=== PATIENT | female | born 1955 | race Caucasian/White ===

== ENCOUNTER → 2019-04-09 | Outpatient (CLI) | payer OTHER ==
[2019-04-09 09:22] LABS: COLLAGEN EPINEPHRINE 131 SECONDS (74-162)
== END ==
LOC: M LAB 08:13
PROVIDERS: ATTEND Ophthalmology
DX: H02.831 Dermatochalasis of right upper eyelid (principal); H02.834 Dermatochalasis of left upper eyelid; H02.423 Myogenic ptosis of bilateral eyelids

== ENCOUNTER → 2019-07-24 | Outpatient (CLI) | payer OTHER ==
[2019-07-24 09:54] VITALS: BP 124/70
--- NOTE | 2019-07-24 10:42 | REP ---
SPECIMEN RADIOGRAPHS: Specimen radiographs are performed following stereotactic biopsy of clustered microcalcifications in the medial left breast. Multiple calcifications are seen in the specimens.
--- NOTE | 2019-07-24 10:45 | REP ---
POSTBIOPSY MAMMOGRAM, LEFT BREAST. Following stereotactic biopsy of clustered microcalcifications in the medial left breast, ML and CC views are performed of the left breast. A metallic clip is seen at the site of the clustered microcalcifications. Many of the calcifications are no longer present.
--- NOTE | 2019-07-24 19:10 | REP ---
Stereotactic breast biopsy. This procedure is performed by VAL Fields, under the personal supervision of Dr. Mariscal. The risks and benefits of the procedure were explained to the patient and informed consent was obtained both verbally and written. Directly prior to the start of the procedure, a formal timeout was done in the procedure room. The cranial caudal approach was utilized on the prone stereotactic table. The calcifications in the left breast were localized using stereotactic mammographic guidance. 4 ml of buffered lidocaine was used as a local anesthetic. A 10-gauge, suction assisted Mammotome needle was inserted and 7 core biopsy samples were obtained. Specimen radiograph demonstrate the presence of microcalcifications to be within the specimen. A marker clip was placed at the biopsy site. The needle was removed and homeostasis was achieved. The patient tolerated the procedure well and there were no immediate complications. After the appropriate amount of monitored convalescence, the patient was discharged from the department. Impression: Technically successful left stereotactic breast biopsy Reviewed by VAL Sweeney 07/24/2019 11:22 A Electronically Signed by Angelito Mariscal MD 07/24/2019 07:01 P
== END ==
LOC: M WHCPRO 08:28
PROVIDERS: ATTEND Surgery
DX: D05.12 Intraductal carcinoma in situ of left breast (principal); Z88.0 Allergy status to penicillin; Z88.2 Allergy status to sulfonamides

== ENCOUNTER → 2019-08-15 | Outpatient (CLI) | payer OTHER ==
[~2019-08-15] MED LIST: PROHANCE 279.3MG/ML 15ML VIAL As Ordered ONE; PROHANCE 279.3MG/ML 5ML VIAL As Ordered ONE
--- NOTE | 2019-08-15 12:53 | REP ---
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 TECHNIQUE: Multiple sequences obtained in the axial, coronal and sagittal planes prior to and following the intravenous administration of 16 mL ProHance. Images are evaluated in the [employer] software including dynamic post-IV gadolinium axial T1 fat saturation images, subtraction images, color overlay images, CAD images, and MIP reconstruction images. There is moderate fibroglandular tissue bilaterally in a fairly symmetrical pattern. Multiple small cysts are scattered throughout both breasts. These are subcentimeter in diameter. There is a focal area of hemorrhagic fluid with an associated biopsy clip in the medial left breast at the site of the recent stereotactic biopsy of clustered microcalcifications. A small hematoma measures 9 mm. This is at 9-o'clock position at the level of the nipple. No axillary adenopathy is seen. Directly posterior to the biopsy site, there is a 5 mm nodular focus of enhancement with a small linear extension anteriorly. This appears somewhat suspicious. In addition, there appear to be some subtle stippled foci of enhancement in the surrounding breast parenchyma, and early ductal carcinoma in situ at these locations cannot be excluded. The area involved in the medial left breast is approximately 4.1 x 7.2 x 3.1 cm. Area extends from just above the biopsy site to about 4 cm below the biopsy site. No other abnormal enhancement is seen in either breast, with very mid scattered background parenchymal enhancement. Incidental note is made of multiple gallstones filling the gallbladder. There are two adjacent nonenhancing cysts in the left lobe of the liver. IMPRESSION: BI-RADS category 6, known left breast cancer. The biopsy site is noted in the medial left breast. Directly posterior to the biopsy site, there is a 5 mm nodular enhancing focus which appears suspicious. This may represent an adjacent focus of cancer. In addition, there are some subtle scattered stippled foci of enhancement in the surrounding parenchyma, more so inferior to the biopsy site, which could represent subtle early foci of ductal carcinoma in situ. The area involved measures 4.1 cm craniocaudal x 7.2 cm AP x 3.1 cm transverse. Electronically Signed by Angelito Mariscal MD 08/15/2019 03:19 P
== END ==
LOC: M RAD 08:23
PROVIDERS: ATTEND Surgery
DX: C50.919 Malignant neoplasm of unspecified site of unspecified female breast (principal); N60.11 Diffuse cystic mastopathy of right breast; N60.12 Diffuse cystic mastopathy of left breast; K80.20 Calculus of gallbladder without cholecystitis without obstruction; K76.89 Other specified diseases of liver
CPT/HCPCS: A9576; C8908

== ENCOUNTER 2019-09-26 08:15 | Day surgery (SDC) | payer OTHER ==
[~2019-09-26] VITALS: Ht 160 cm; Wt 80.7 kg
[~2019-09-26 08:15] MED LIST changes: +ACET-907 PO; +CETI5SOL3 PO; +LEVO75TA4 PO; +PROAAER10 INH; -PROHANCE 279.3MG/ML 15ML VIAL As Ordered ONE; -PROHANCE 279.3MG/ML 5ML VIAL As Ordered ONE; +RAMI1CAP26 PO; +SIMV40TA20 PO; +VITA50005 PO
[2019-09-26] MEDS ORDERED: LIDOCAINE 5% (LIDODERM) PATCH As Ordered ONE (08:32)
[2019-09-26] MEDS ORDERED: propofoL 200 MG/20 ML VIAL ONE (09:03)
[2019-09-26] MEDS ORDERED: MIDAZOLAM INJ 2MG/2ML VIAL (J2250 PER 1MG) ONE (09:03)
[2019-09-26] MEDS ORDERED: LIDOCAINE 2% 100MG/5ML SDV (FOR ANES.) ONE (09:03)
[2019-09-26] MEDS ORDERED: ROCURONIUM BROMIDE 50 MG/5 ML VIAL ONE (09:03)
[2019-09-26] MEDS ORDERED: fentaNYL 250 MCG/5 ML INJECTION (J3010) ONE (09:03)
[2019-09-26] MEDS ORDERED: SCOPOLAMINE 1MG TRANSDERMAL PATCH ONE (10:53)
[2019-09-26] MEDS ORDERED: PHENYLephrine HCL 500 MCG/5 ML (100MCG/ML) SYRINGE (J2370) ONE (11:49)
[2019-09-26] MEDS ORDERED: ONDANSETRON 4MG/2ML VIAL ONE (12:24)
[2019-09-26] MEDS ORDERED: METOCLOPRAMIDE INJ 10MG/2ML VIAL (J2765 PER 1) ONE (12:24)
[2019-09-26] MEDS ORDERED: KETOROLAC 60MG 2ML VIAL ONE (12:24)
[2019-09-26] MEDS ORDERED: SUGAMMADEX SODIUM 500 MG/5 ML VIAL (BRIDION) ONE (12:24)
[2019-09-26] MEDS ORDERED: ePHEDrine SULFATE 25 MG/5 ML(5MG/ML) SYRINGE ONE (12:51)
[2019-09-26] MEDS ORDERED: oxyCODONE 5MG TAB ONE (15:40)
[2019-11-05] MEDS ORDERED: REFR0.5D8 OP (09:01)
[2019-11-05] MEDS ORDERED: CALC1TAB63 PO (09:13)
[2019-11-05] MEDS ORDERED: ANAS1TAB2 PO (09:14)
--- NOTE | 2019-11-14 09:16 | REP ---
LEFT BREAST LYMPHOSCINTIGRAPHY: The procedure was performed under the direct supervision of Dr. Minaya. The images were reviewed with Dr. Minaya. The risks and benefits of the procedure were explained to the patient and informed consent was obtained. PROCEDURE: Using topical anesthetic and sterile technique, 1.041 mCi of technetium-99 filtered sulfur colloid was injected subdermally in 8 fractionated periareolar injections. Images obtained one hour after injection show reema uptake in the axillary region on the left. IMPRESSION: Left breast lymphoscintigraphy. There is reema uptake in the left axillary region. MTDD
--- NOTE | 2019-11-27 09:29 | RO ---
DATE OF OPERATION: 09/26/2019 PREOPERATIVE DIAGNOSIS: Left breast cancer. POSTOPERATIVE DIAGNOSIS: Left breast cancer. PROCEDURES PERFORMED: * Ultrasound-guided placement of localizing wire to localize her prior breast biopsy site. * Left breast sentinel lymph node biopsy. * Needle localized excision of left breast ductal carcinoma in situ and invasive ductal carcinoma. SURGEON: Hamlet Wilks M.D. ANESTHESIA: General. INDICATIONS FOR PROCEDURE: The patient is a 64-year-old woman who on recent mammogram was found to have a new cluster of calcifications in the medial aspect of the left breast. She underwent a stereotactic biopsy of the left breast on the 23 of July with the biopsy revealing ductal carcinoma in situ with a very small (2 mm) focus of invasive carcinoma. She is now for a needle localized excisional biopsy of her previous biopsy site with a sentinel lymph node biopsy. DESCRIPTION OF PROCEDURE: The patient was brought to the operating room and placed on the table in a supine position. She was placed under general endotracheal anesthesia. She had been sent to the x-ray department for lymphoscintigraphy prior to coming to the operating room. Her imaging did indicate the presence of an area of uptake of her radioactive tracer in the left axilla. With examination of the axilla, I did identify an area of uptake in the anterior aspect of the axilla on the left just posterior to the anterior axillary fold. The electronic lab technician assisted in identifying the biopsy marker, which had been placed at the time of her stereotactic biopsy. I placed a localizing hook wire at the site of the clip under ultrasound guidance. This was done after alcohol prep. The patients left breast, chest wall, and axilla were then prepped and draped in a sterile fashion. Initially, I proceeded with the sentinel lymph node biopsy. Inspection of the breast and axilla showed that there was significant tracer activity noted at a focal spot in the anterior aspect of the left axilla. An approximately 3 cm transverse incision was made directly over this site. The incision was deepened into the subcutaneous tissue using the cautery and the axillary fascia was then opened. Dissection was then carried out using a combination of sharp and cautery dissection. Some avascular tissues could be spread bluntly. The dissection was guided using intermittent examination with the Neoprobe to identify the site of gamma activity. The incision was deepened into the axilla and in an area close to the chest wall. A single lymph node was identified. This was removed with some surrounding fibrofatty tissue. There was a single node about 1 to 1.5 cm in diameter that was identified. A 10-second gamma count was approximately 27,000. This was sent for a frozen section as the left axillary sentinel lymph node. Re-inspection of the axilla revealed no other areas of significant radiotracer activity. Background count was approximately 225 in 10 seconds. The wound was irrigated and inspected and hemostasis was ensured with cautery or Hemoclips as necessary. I began to close the wound with some Chromic sutures in the subcutaneous tissues. The skin edges were approximated with a running subcuticular 4-0 Vicryl. I was contacted by the pathologist by phone to report that the frozen section of the sentinel node was negative for metastatic cancer. I then proceeded with the wide excision of the cancer. The site of the localizing wire was noted in the medial aspect of the left breast. An elliptical skin incision was outlined approximately 5-6 cm in length x perhaps 2 cm in width. The skin was incised with a scalpel and hemostasis was ensured with a cautery. The skin edges were then elevated and by primarily palpation, the biopsy was dissected circumferentially. I proceeded to take a fairly wide excision of the area of her previously noted calcifications as marked by the hook wire. The incision was deepened through the breast tissue at the edge of the areola in the more central aspect of the breast. The dissection was deepened to a point quite deep to the tip of the localizing wire. The pectoral fascia was not identified directly, but the dissection had proceeded close to this. The specimen was removed and measured approximately 7 cm in length x 7 cm in width x 4 cm in thickness. This was marked with the [employer] MarginMarker system. After fixing the marking paint, two images were obtained in the [facility], which showed the marker clip fairly centrally within the specimen with the guidewire in place. The specimen was sent for permanent pathology. The wound was inspected for hemostasis. Several Chromic sutures were placed. The cautery was used for additional hemostasis. I then mobilized the breast tissue superiorly and inferiorly to bring this together. There was some excess skin along the edges of the wound and some of this was trimmed sharply. It was necessary to tailor the skin at the edge of the areola to avoid a dog ear in this position. After achieving adequate hemostasis, the deep portions of the breast tissue were approximated with some buried sutures of 2-0 Chromic. The more superficial tissues were approximated with some 3-0 Vicryl. The skin edges were approximated with multiple buried 3-0 Vicryl sutures and the skin was then closed with a running subcuticular 4-0 Vicryl. Steri-Strips were applied to the breast and axillary wounds. A bulky bandage of gauze was applied. The patient tolerated the procedure well without apparent complication. She was awakened in the operating room, extubated, and moved to the recovery room in stable condition. AURA
--- NOTE | 2019-12-08 09:49 | REP ---
DATE: 09/26/2019 TIME: 1:59 p.m. SPECIMEN RADIOGRAPHY: Left breast. HISTORY: Excisional biopsy needle localization. COMPARISON: Mammography July 24, 2019. FINDINGS: A series of 2 specimen radiographs demonstrated breast specimen containing a localizer wire, a previously placed needle biopsy marker clip and several groups of microcalcifications. MTDD
--- NOTE | 2019-12-08 09:50 | REP ---
TARGETED LEFT BREAST SONOGRAPHY HISTORY: Sonographic guidance. FINDINGS: Sonographic guidance is provided to Dr. Wilks who performed ultrasound-guided wire localization procedure of HydroMARK clip left breast. AURA
== END 2019-09-26 17:20 | disposition home or self-care (01) ==
LOC: M SDC 08:15
PROVIDERS: ATTEND Surgery
DX: D05.12 Intraductal carcinoma in situ of left breast (principal); I10 Essential (primary) hypertension; E78.5 Hyperlipidemia, unspecified; E03.9 Hypothyroidism, unspecified; G43.909 Migraine, unspecified, not intractable, without status migrainosus; J45.909 Unspecified asthma, uncomplicated; Z88.0 Allergy status to penicillin; Z88.2 Allergy status to sulfonamides; Z79.899 Other long term (current) drug therapy; Z79.51 Long term (current) use of inhaled steroids
CPT/HCPCS: 19125; 38525; 78195; 88305; 88307; A9541; J1885; J2250; J2370; J2405; J2765; J3010

== ENCOUNTER → 2019-10-12 | Outpatient (CLI) | payer OTHER ==
[~2019-10-12] MED LIST changes: +ANAS1TAB2 PO; +CALC1TAB63 PO; +REFR0.5D8 OP
== END ==
LOC: M LABSMTC 09:26
PROVIDERS: ATTEND Anesthesiology
DX: Z01.812 Encounter for preprocedural laboratory examination (principal); Z11.59 Encounter for screening for other viral diseases

== ENCOUNTER 2019-10-17 06:00 | Day surgery (SDC) | payer OTHER ==
[~2019-10-17] VITALS: Ht 160 cm; Wt 80.6 kg
[~2019-10-17 06:00] MED LIST changes: -ANAS1TAB2 PO; -CALC1TAB63 PO; -REFR0.5D8 OP
[2019-10-17] MEDS ORDERED: BUPIVACAINE HCL 0.25% 30ML VIAL As Ordered ONE (07:13)
[2019-10-17] MEDS ORDERED: LIDOCAINE 1% SDV 30ML VIAL As Ordered ONE (07:13)
[2019-10-17] MEDS ORDERED: LIDOCAINE 2% 100MG/5ML SDV (FOR ANES.) As Ordered ONE (07:15)
[2019-10-17] MEDS ORDERED: dexameTHASONE 4 MG/ML 1ML VIAL (J1100 PER 1MG) As Ordered ONE (07:15)
[2019-10-17] MEDS ORDERED: ONDANSETRON 4MG/2ML VIAL As Ordered ONE (07:15)
[2019-10-17] MEDS ORDERED: ROCURONIUM BROMIDE 50 MG/5 ML VIAL As Ordered ONE (07:15)
[2019-10-17] MEDS ORDERED: propofoL 200 MG/20 ML VIAL As Ordered ONE (07:15)
[2019-10-17] MEDS ORDERED: MIDAZOLAM INJ 2MG/2ML VIAL (J2250 PER 1MG) As Ordered ONE (07:17)
[2019-10-17] MEDS ORDERED: fentaNYL 250 MCG/5 ML INJECTION (J3010) As Ordered ONE (07:17)
[2019-10-17] MEDS ORDERED: METOCLOPRAMIDE INJ 10MG/2ML VIAL (J2765 PER 1) As Ordered ONE (07:50)
[2019-10-17] MEDS ORDERED: ePHEDrine SULFATE 25 MG/5 ML(5MG/ML) SYRINGE As Ordered ONE (07:56)
[2019-10-17] MEDS ORDERED: ACETAMINOPHEN 1000MG 100ML IV BTL (OFIRMEV) (J0131 PER 10MG) As Ordered ONE (08:00)
[2019-10-17] MEDS ORDERED: LACRILUBE (AKWA TEARS) OPHTH OINT 3.5 GM As Ordered ONE (08:00)
[2019-10-17] MEDS ORDERED: HYDROmorphone HCL 2 MG/ML 1ML VIAL (J1170) As Ordered ONE (08:24)
[2019-10-17] MEDS ORDERED: KETOROLAC 60MG 2ML VIAL As Ordered ONE (08:44)
[2019-10-17] MEDS ORDERED: SUGAMMADEX SODIUM 500 MG/5 ML VIAL (BRIDION) As Ordered ONE (08:44)
[2019-10-17] MEDS ORDERED: BUPIVACAINE LIPOSOME/PF 1.3% 20ML VIAL (13.3MG/ML)(EXPAREL)(C9290 PER1MG) As Ordered ONE (09:30)
[2019-10-17] MEDS ORDERED: PERCOCET 5MG/325MG TAB As Ordered ONE (10:58)
[2019-10-17] MEDS ORDERED: LR 1,000 ML IV SCH (11:00)
[2019-10-17] MEDS ORDERED: ONDANSETRON 4MG/2ML VIAL IV PRN (11:00)
[2019-10-17] MEDS ORDERED: fentaNYL 100 MCG/2 ML INJECTION (J3010) IV PRN (11:00)
[2019-10-17] MEDS ORDERED: METOCLOPRAMIDE INJ 10MG/2ML VIAL (J2765 PER 1) IV PRN (11:00)
[2019-10-17] MEDS ORDERED: PERCOCET 5MG/325MG TAB PO PRN ×2 (11:00→12:00)
[2019-10-17 12:00] VITALS: BP 120/69
[2019-10-17] MEDS ORDERED: ACETAMINOPHEN TAB 650MG DOSE (2X325MG) PO PRN (12:00)
[2019-11-05] MEDS ORDERED: REFR0.5D8 OP (09:01)
[2019-11-05] MEDS ORDERED: CALC1TAB63 PO (09:13)
[2019-11-05] MEDS ORDERED: ANAS1TAB2 PO (09:14)
--- NOTE | 2019-11-12 09:42 | RO ---
DATE OF OPERATION: 10/17/2019 PREOPERATIVE DIAGNOSIS: Left breast cancer with margin positive for ductal carcinoma in situ following prior resection POSTOPERATIVE DIAGNOSIS: Left breast cancer with margin positive for ductal carcinoma in situ following prior resection PROCEDURE: Wide excision of ductal carcinoma in situ, left medial breast. SURGEON: Hamlet Wilks MD ANESTHESIA: General. INDICATIONS FOR THE PROCEDURE: The patient is a 64-year-old woman, who was found on previous imaging to have calcifications in the medial aspect of the left breast. A sterotactic biopsy in July revealed ductal carcinoma in situ with a small focus of invasive cancer. On September 25, she was brought to the operating room and underwent a needle localized excisional biopsy of her previous biopsy site, as well as a sentinel lymph node biopsy. This previous excision showed ductal carcinoma in situ with no additional invasive cancer identified, but the margin was positive posteriorly. Her sentinel lymph node was negative. She is now for a wider excision of her previous biopsy site. OPERATIVE PROCEDURE: The patient was brought to the operating room and placed on the table in a supine position. She was placed under general endotracheal anesthesia. The patients left breast and chest wall were prepped and draped in a sterile fashion. Inspection revealed a transverse incision extending from the edge of the areola, proximally to the medial end of the left breast. There was some fullness beneath this. Her sentinel lymph node biopsy site in the left axilla was well healed. I elected to excise a small rib of tissue around the recent incision, expecting that there would be excess skin following the additional breast tissue resection. Therefore, at approximately 8 to 10 x 1 to 2 cm ellipse was outlined. The skin was incised with a scalpel and dissection was then carried out using the needle tip cautery. I elected just to excise the piece of skin and this was set aside as a portion of the specimen. The underlying tissue appeared to have healed together quite well where it had been sutured with absorbable sutures. I elected to elevate the skin superiorly and inferiorly and begin an elliptical excision of the underlying tissue. As the incision was deepened into the breast tissue, a pocket of brownish-red fluid consistent with a small deeper lying hematoma was released. The incision was then deepened on all sides into the breast tissue. This was carried down as an ellipse approximately 4 to 5 cm in width by 5 to 7 cm in length. This was carried deep to the medial aspect of the areola as well. The dissection was carried down to the pectoral fascia. The fascia was excised with the overlying tissue. This specimen was approximately 8 cm x 4 cm x 5 cm in depth. This was marked with [employer] Margin Marker System. This was then sent for permanent pathology. The wound was inspected and hemostasis was ensured with the cautery. A mix of 20 cc of Exparel with 10 cc of 40% Marcaine was then infiltrated widely around the wound. The breast tissue was elevated off of the pectoral muscle extending superiorly and inferiorly to allow approximation of the breast tissue. Likewise, the skin was elevated off of the breast tissue to allow the tissues to come together without buckling the skin. Because of the large potential space that was created, I elected to place a Edgar drain. Therefore, a 19 Samoan Edgar drain was placed through a stab wound within the inframammary fold and directed into the deep aspect of the breast overlying the pectoral muscle. The deep tissues of the breast were then approximated with interrupted sutures of 0-Vicryl. The more superficial breast tissue was approximated with additional Vicryl sutures. The more superficial tissues were then approximated also with Vicryl. This appeared to reconstruct the general shape of the breast well. The skin edges were then approximated with multiple buried simple sutures of 3-0 Vicryl. The skin edges were approximated with a running subcuticular 4-0 Vicryl. Steri-Strips were applied. A small inadvertent burn had occurred with the tip of the cautery while cleaning the tip and this was also right in the inframammary fold on the left. This was a 2 mm burn deep into the skin and this small area was excised, closed with buried 5-0 Vicryl and closed with Steri-Strips. The drain was sutured to the skin with a 2- 0 silk and the drain site was covered with a chlorhexidine gluconate OpSite. This was connected to a Yogesh-Barreto bulb. A bulky bandage was applied to the breast and held into place with paper tape. The patient tolerated the procedure well without apparent complication. She was awakened in the operating room, extubated and moved to the recovery room in stable condition. AURA
[2020-01-02] MEDS ORDERED: CIPR-249 PO (09:32)
== END 2019-10-17 13:05 | disposition home or self-care (01) ==
LOC: M SDC 06:00
PROVIDERS: ATTEND Surgery
DX: D05.12 Intraductal carcinoma in situ of left breast (principal); Z17.0 Estrogen receptor positive status [ER+]; I10 Essential (primary) hypertension; J45.909 Unspecified asthma, uncomplicated; E03.9 Hypothyroidism, unspecified; Z79.899 Other long term (current) drug therapy
CPT/HCPCS: 19120; 88307; C9290; J0131; J1100; J1170; J1885; J2250; J2405; J2765; J3010; U0002

== ENCOUNTER → 2019-11-11 | Outpatient (CLI) | payer OTHER ==
[~2019-11-11] MED LIST changes: +ANAS1TAB2 PO; +CALC1TAB63 PO; +CIPR-249 PO; +REFR0.5D8 OP
--- NOTE | 2019-12-18 11:54 | RADONC ---
MEDICAL ONCOLOGY CONSULTATION NOTE DATE: 11/11/2019 Chart #[id number] DIAGNOSIS: 1. Left breast cancer. Stage IA, T1a, N0, M0, ER positive, IN negative, HER2-lauryn negative, invasive component 2 mm. ECOG performance status 0. CONSULTATION NOTE: Ms. Haque is a delightful 64-year-old white female with a diagnosis of what appears to be a Stage IA, T1a, N0, M0, poorly differentiated ductal carcinoma in situ with a 2 mm focus of invasion which is estrogen receptor positive, progesterone receptor negative and HER2-lauryn negative, who is presenting to us today status post lumpectomy and sentinel lymph node biopsy for consideration if postoperative radiation therapy for conservative breast management. HISTORY OF PRESENT ILLNESS: The patient was in her usual state of health until June of this year when routine mammography revealed a suspicious area in the medial aspect of her left breast. On 07/24/19, the patient underwent a left breast biopsy. Pathology revealed ductal carcinoma in situ which was solid, micropapillary, and of comedo type. Nuclear grade was 3 of 3 with a small microscopic invasive focus measuring 2 mm. The tumor was sent to [facility] for markers and was found to be estrogen receptor strongly positive, progesterone receptor negative and HER2-lauryn negative. An MRI was done on 08/15/2019 and there was found to be an area of hemorrhagic fluid with an associated biopsy clip in the medial left breast at the site of the recent stereotatic biopsy of clustered microcalcifications. A small hematoma measured 9 mm and it was at the 9 oclock position. Directly posterior to the biopsy site, there was a 5 mm focus of enhancement with small linear extensions anteriorly. This appeared somewhat suspicious. The area involved in the medial left breast was approximately 4.1 cm x 7.2 cm x 3.1 cm. The area extended just above the biopsy site to about 4 cm below the biopsy site. This area was stippled and ductal carcinoma in situ could not be excluded. On 09/26/2019, the patient underwent a needle localization lumpectomy and a specimen size of 6 cm x 6 cm x 4.5 cm was removed. Multifocal ductal carcinoma in situ was noted and was solid with central necrosis of a nuclear Grade 3. DCIS was scattered both around and away from the previous biopsy cavity and focally extended to the black inked margin of resection. One sentinel lymph node was sampled and was negative for malignancy. On 10/17/2019, the patient underwent re-excision of her site and pathology revealed once again ductal carcinoma in situ, nuclear Grade 3. Microcalcifications were associated with the ductal carcinoma in situ. The margins were uninvolved with cancer and the closest margin was less than 1 mm laterally. No further invasive carcinoma was seen. The tumor was again noted to be estrogen receptor positive, progesterone receptor negative and HER2-lauryn negative. The patient was seen by her medical oncologist, Dr. Hinson, who recommended an aromatase inhibitor after radiation was completed and is now being referred to us for discussion of possible postoperative radiation therapy for conservative breast management. PAST MEDICAL HISTORY: The patients past medical history is positive for asthma. She has cardiovascular disease, hypercholesterolemia, hypertension, and thyroid problems. In addition, she had a section in 1987 at the age of 31. The patient has had a hysterectomy. She had a tonsillectomy in the past. She had been using oral contraceptives for four years. ALLERGIES: The patient is allergic to penicillins and sulfa drugs. SOCIAL HISTORY: The patient does not abuse alcohol and never smoked. She drinks alcohol socially. FAMILY HISTORY: The patients family history is positive for a sister with cancer as well as a paternal grandfather with cancer. REVIEW OF SYSTEMS: The patients review of systems is noncontributory. She denies nausea, vomiting, fevers, chills, night sweats, diplopia, headaches, anxiety, depression, anorexia, weight loss, visual disturbances, chest pain, urinary or bowel difficulties, bone pain or neurological problems. PHYSICAL EXAMINATION: GENERAL: The patient is a well-developed, well-nourished white female in no acute distress. HEENT: Normocephalic, atraumatic. Extraocular movements are intact. LYMPH: There is no palpable cervical, supraclavicular, infraclavicular, axillary or inguinal lymphadenopathy present. LUNGS: Clear to auscultation and percussion. HEART: Regular rate and rhythm. ABDOMEN: Benign with no hepatosplenomegaly, masses or tenderness. BREASTS: No masses or discharge bilaterally. SKELETAL: No tenderness to pressure or percussion. EXTREMITIES: No clubbing, cyanosis or edema. NEUROLOGIC: Grossly intact. ASSESSMENT: I believe the patient would be a candidate for postoperative radiation therapy and I have so informed her. I have discussed with the patient in detail the potential benefits as well as possible acute and chronic sequelae of external beam radiation therapy. We discussed logistics of treatment planning, simulation and subsequent fractionated daily radiation treatments. The patient reports that she is leaving for [place] to take care of her [id number] who is a Holocaust survivor. She will be back on December 07 and wishes to undergo simulation and initiation of treatment planning at that point. As this is only three weeks from now, I think this is quite reasonable considering her family obligations and situation. I have, therefore scheduled the patient for a simulation to be undertaken on December 08. In addition, the patient will be meeting and discussing her care with Dr. Oniel Vega at that time for permission for treatment and his approval of the treatment plan. In the meantime, aromatase inhibitors will be given as per Dr. Hinson following completion of radiation. Edited: david 12/18/2019 1220 MTDD
== END ==
LOC: M ONCR 12:58
PROVIDERS: ATTEND Radiology Radiation Oncology
DX: C50.919 Malignant neoplasm of unspecified site of unspecified female breast (principal)

== ENCOUNTER → 2019-11-12 | Outpatient (CLI) | payer OTHER ==
[2019-11-12 11:52] LABS: COLLAGEN EPINEPHRINE 98 SECONDS (74-162)
== END ==
LOC: M LAB 10:36
PROVIDERS: ATTEND Ophthalmology
DX: H02.831 Dermatochalasis of right upper eyelid (principal); H02.834 Dermatochalasis of left upper eyelid; H02.423 Myogenic ptosis of bilateral eyelids

== ENCOUNTER → 2019-11-14 | Outpatient (CLI) | payer OTHER | LOC: M LABSMTC 11:05 | PROVIDERS: ATTEND Ophthalmology | DX: Z01.812 Encounter for preprocedural laboratory examination (principal); Z20.828 Contact with and (suspected) exposure to other viral communicable diseases | CPT/HCPCS: C9803; U0003 ==

== ENCOUNTER 2019-12-19 09:02 | Outpatient (RCR) | payer OTHER ==
[~2019-12-19 09:02] MED LIST changes: -CIPR-249 PO
== END 2019-12-20 ==
LOC: M ONCR 09:02
PROVIDERS: ATTEND General Practice
DX: C50.812 Malignant neoplasm of overlapping sites of left female breast (principal)

== ENCOUNTER 2020-01-07 09:08 | Outpatient (RCR) | payer OTHER ==
--- NOTE | 2020-01-02 09:34 | RADENCPD ---
Date/Time of Encounter Date of Encounter: Jan 02, 2020 Time of Encounter: 09:30 Encounter Mrs. Haque complains of dysuria, new onset. Typical of her prior UTI. No bleeding, minimal frequency. Will order UA Will give empiric abx Cipro 500 mg PO BID for 3 days Also recommend AZO tabs OTC PRN for dysuria MARIA LUISA VANG MD Jan 02, 2020 09:34
[~2020-01-07 09:08] MED LIST changes: +CIPR-249 PO
[2020-01-09] MEDS ORDERED: ANAS1TAB2 PO (10:21)
[2020-01-09] MEDS ORDERED: ALEN70TA74 PO (10:32)
== END 2020-01-19 ==
LOC: M ONCR 09:08
PROVIDERS: ATTEND General Practice
DX: C50.812 Malignant neoplasm of overlapping sites of left female breast (principal)

== ENCOUNTER → 2020-06-30 | Outpatient (CLI) | payer OTHER ==
[~2020-06-30] MED LIST changes: +ALEN70TA82 PO
--- NOTE | 2020-06-30 11:51 | RADONC ---
Radiation Oncology Hx/FUP Radiation Oncology Hx/FUP Date of Service: June 30, 2020 Pt Identifier Lenore Haque is a 64 year old female seen for a followup visit today at the department of radiation oncology for a history of screening detected left breast cancer pT1aN0(sn)M0 ER+ AR/HER2- Grade 3. She is s/p lumpectomy and SLNB followed by margin directed re-excision for DCIS on 10/17/19. She completed adjuvant RT to the left breast, 40 Gy in 15 fractions on 01/05/20. She continued on anastrazole. Diagnosis/Treatment History Oncologic History June 2019 mammogram showing calcification left breast 9:00 07/24/19 Biopsy showing DCIS with a microfocus of invasion (<0.2cm) 08/15/19 MRI without regional disease but revealing a large area suspicious for DCIS 09/26/19 Lumpectomy revealing multifocal DCIS and small focus of invasive disease [id number] ER+ AR/HER2- Grade 3 10/17/19 Margin directed excision for DCIS closest margin <0.1cm Survivorship Test Due Next Last result Notes TSH, T4* 6m post-tx, then q1y N/A Carotid US* q10 y post-tx N/A Smoking cessation Assess annually if applicable N/A Screening CT chest q1y if eligible per USPSTF N/A Mammograms Min q1y, if breast conservation Summer 2020 CBC,CMP, Lipids q1y Fall 2020 DEXA q2y if on AI 2021 Interval History Notes increased joint pain and stiffness in recent months. Attributes this to AI. Plans for a change with med onc later this month. Due for mammograms, used to go to [facility], now closed. Would like referral to another center. No complaints related to skin. Current Therapy Anastrazole Stage Left breast IDC pT1aN0(sn)M0 ER+ AR/HER2- Grade 3 Social History: Never smoker Does not drink Allergies / Meds Allergies: Coded Allergies: ENVIROMENTAL (Verified Allergy, Unknown, 10/16/19) Penicillins (Unverified Allergy, Unknown, rash, 10/17/19) Sulfa (Sulfonamide Antibiotics) (Unverified Allergy, Unknown, rash, 10/17/19) Home Meds Active Scripts Alendronate Sodium (Alendronate Sodium) 70 Mg Tablet, 1 TAB PO Q7D for 30 Days, #12 TAB 3 Refills in the morning, at least 30 minutes before the first food, beverage, or medi cation of the day Prov:CRUZ SAAVEDRA MD 01/09/20 Anastrozole (Anastrozole) 1 Mg Tablet, 1 TAB PO DAILY for 30 Days, #30 TAB 5 Refills Prov:CRUZ SAAVEDRA MD 01/09/20 Calcium Carbonate/Vitamin D3 (Calcium 600-Vit D3 400 Tablet) 1 Each Tablet, 1 TAB PO BID for 90 Days, #180 TAB 3 Refills Prov:CRUZ SAAVEDRA MD 11/05/19 Reported Medications Carboxymethylcellulose Sodium (Refresh Tears) 15 Ml Drops, 1 DROP OP QID for 30 Days, #15 ML 11/05/19 Albuterol Sulfate (Proair Hfa) 8.5 Gm Hfa.aer.ad, 2 PUFF INH PRN PRN for SOB/WHEEZING, INHALER 09/08/19 Cetirizine Hcl (Cetirizine HCl) 1 Mg/1 Ml Solution, 10 MG PO PRN, LAKESHA 09/08/19 Acetaminophen (Tylenol) 325 Mg Tablet, 650 MG PO PRN, TAB 09/08/19 Ergocalciferol (Vitamin D2) (Vitamin D2) 50,000 Units Cap, 1250 MCG PO QWEEK, CAP sunday09/08/19 Ramipril (Ramipril) 10 Mg Capsule, 10 MG PO QPM, CAP 09/08/19 Simvastatin (Simvastatin) 40 Mg Tablet, 40 MG PO QPM, TAB 09/08/19 Levothyroxine Sodium (LEVOTHYROXINE SODIUM) 75 Mcg Tablet, 75 MCG PO QPM, TAB 09/08/19 Review of Systems Review of Systems Constitutional: Denies: Fever, Fatigue Eyes: Denies: Pain HEENT: Denies: Head Aches Skin: Denies: Rash Breast: Denies: New Breast Lumps / Masses, Breast Skin Changes Pulmonary: Denies: Dyspnea Cardiovascular: Denies: Chest Pain Gastrointestinal: Denies: Abdominal Pain Hematologic: Denies: Bruising Musculoskeletal: Reports: Joint pain Neurological: Denies: Weakness, Numbness Psych: Reports: Mood Normal Physical Examination Vital Signs Wt 177 T 96.5 P 78 RR 18 BP 129/86 O2 95% Pain 0 Fatigue 1 General Exam: Positive: Alert, Cooperative, No Acute Distress Eye Exam: Positive: PERRLA, EOMI ENT EXAM: Positive: Atraumatic Neck Exam: Positive: Supple Chest Exam: Positive: Clear to auscultation Heart Exam: Positive: Rate Normal Breast Exam: Negative: Symmetric Bilaterally (Right breast ptotic > Left. No palpable masses or lesions BL. No discernible skin sequelae left breast, there is some fibrosis in the left axilla, but no palpable lesions. ) Abdomen Exam: Positive: Soft Extremity Exam: Negative: Edema Skin Exam: Positive: Nl turgor and temperature Neuro Exam: Positive: Normal Gait, Normal Speech, Cranial Nerves 3-12 NL Psych Exam: Positive: Mental status NL Diagnostic and Laboratory Diagnostic Review Radiologic images, relevant labs and pathology reports were personally reviewed and discussed with Ms. Haque. Assessment and Plan Impression Assessment Ms. Haque is a 64 year old female with a history of screening detected left breast cancer pT1aN0(sn)M0 ER+ AR/HER2- Grade 3. She is s/p lumpectomy and SLNB followed by margin directed re-excision for DCIS on 10/17/19. She completed adjuvant RT to the left breast, 40 Gy in 15 fractions on 01/05/20. She continued on anastrazole. She has no evidence of disease on exam today. She is due for mammography will refer to the breast imaging center here for this. These should be done in the next few months. She is considering switching her AI. Seeing medical oncology about this soon. Offered PT/OT referral given scar tissue in left axilla. She declined. I will follow up with her in 6 months time. Performance Status ECOG 0 Plan Follow up in 6 months Ms. Haque was encouraged to call with questions or concerns in the interim period. Billing Statement Total time of [23] minutes was spent preparing for the visit [1], obtaining HPI [4], examining the patient [4], reviewing diagnostic tests [1], discussing management options [5], coordinating care [1], and writing this note [7]. MARIA LUISA VANG MD June 30, 2020 11:51
== END ==
LOC: M ONCR 10:19
PROVIDERS: ATTEND General Practice
DX: C50.812 Malignant neoplasm of overlapping sites of left female breast (principal)

== ENCOUNTER → 2020-07-13 | Outpatient (CLI) | payer OTHER ==
[~2020-07-13] MED LIST changes: +COVI30VI IM; +EXCETAB33 PO
--- NOTE | 2020-07-13 10:30 | REPMRS ---
Patient History The patient states she had a clinical breast exam in June 2020. Patient has history of cancer in the left breast at age 64 and had previous chest radiation therapy at age 64. Family history of breast cancer at age 50 or over in maternal half sister, pancreatic cancer at age 50 or over in paternal cousin, pancreatic cancer at age 50 or over in paternal cousin. Malignant radio exam breast specimen of the left breast, October 17, 2019. Malignant lumpectomy of the left breast, September 2019. Malignant stereotatic loc for ea lesion. of the left breast, July 24, 2019. Malignant radio exam breast specimen. of the left breast, July 24, 2019. Patient has signed MRS History Sheet. Diagnostic Bilateral Mammo: July 13, 2020 - Exam #: [id number] Bilateral CC and MLO view(s) were taken. Technologist: RT Aydin Prior study comparison: June 26, 2019, left breast digital mammo diagnostic unilateral, performed at [facility]. May 12, 2019, bilateral digital mammo screening bilat, performed at [facility]. April 09, 2018, bilateral digital mammo screening bilat, performed at [facility]. April 02, 2017, bilateral digital mammo screening bilat, performed at [facility]. FINDINGS: The breast tissue is heterogeneously dense. This may lower the sensitivity of mammography. The Volpara volumetric breast density category is: C. There is some stromal thickening and contour deformity in the left breast post radiation therapy and lumpectomy. The previously noted suspicious microcalcifications have been removed. There is a moderate amount of heterogeneously dense fibroglandular tissue which is fairly symmetric. There is no other interval development of dominant mass, architectural distortion, or grouped microcalcification typical of malignancy. There has been no change in the appearance of the mammogram from the prior studies. 3-D tomosynthesis shows no additional findings. Assessment: BI-RADS/ACR category 2 mammogram. Benign Findings. Recommendation Routine screening mammogram of both breasts in 1 year (for women over age 40). This mammogram was interpreted with the aid of an FDA-approved computer-aided dectection system. Electronically Signed By: Edwardo Minaya MD 07/13/20 [id number]
== END ==
LOC: M WHC 09:14
PROVIDERS: ATTEND Radiology Radiation Oncology
DX: Z85.3 Personal history of malignant neoplasm of breast (principal); Z92.3 Personal history of irradiation; Z80.3 Family history of malignant neoplasm of breast; Z80.8 Family history of malignant neoplasm of other organs or systems
CPT/HCPCS: 77066; G0279

== ENCOUNTER → 2021-01-05 | Outpatient (CLI) | payer OTHER ==
[~2021-01-05] MED LIST changes: +ERGO500029 PO; -VITA50005 PO
--- NOTE | 2021-01-05 13:12 | RADONC ---
Radiation Oncology Hx/FUP Radiation Oncology Hx/FUP Date of Service: Jan 05, 2021 Pt Identifier Lenore Haque is a 65 year old female seen for a followup visit today at the department of radiation oncology for a history of screening detected left breast cancer pT1aN0(sn)M0 ER+ VT/HER2- Grade 3. She is s/p lumpectomy and SLNB followed by margin directed re-excision for DCIS on 10/17/19. She completed adjuvant RT to the left breast, 40 Gy in 15 fractions on 01/05/20. She continued on anastrazole. Diagnosis/Treatment History Oncologic History June 2019 mammogram showing calcification left breast 9:00 07/24/19 Biopsy showing DCIS with a microfocus of invasion (<0.2cm) 08/15/19 MRI without regional disease but revealing a large area suspicious for DCIS 09/26/19 Lumpectomy revealing multifocal DCIS and small focus of invasive disease [id number] ER+ VT/HER2- Grade 3 10/17/19 Margin directed excision for DCIS closest margin <0.1cm Survivorship Test Due Next Last result Notes TSH, T4* 6m post-tx, then q1y N/A Carotid US* q10 y post-tx N/A Smoking cessation Assess annually if applicable N/A Screening CT chest q1y if eligible per USPSTF N/A Mammograms Min q1y, if breast conservation summer negative CBC,CMP, Lipids q1y 2021 2020 WNL DEXA q2y if on AI 2021 Interval History Lenore has been dealing with some family member health problems/scares, which have been stressful. She is feeling well however, no concerns with her breasts. She is current on mammograms and has her next exams scheduled for 2021. She continues on anastrozole, her joint pains and muscle aches have subsided from e drug. She has been exercising 3 days per week at the , also teaches yoga classes. Overall appetite and energy levels are good, weight is stable. Current Therapy Anastrazole Stage Left breast IDC pT1aN0(sn)M0 ER+ VT/HER2- Grade 3 Social History: Never smoker Does not drink Allergies / Meds Allergies: Coded Allergies: ENVIROMENTAL (Verified Allergy, Unknown, 10/16/19) Penicillins (Unverified Allergy, Unknown, rash, 10/17/19) Sulfa (Sulfonamide Antibiotics) (Unverified Allergy, Unknown, rash, 10/17/19) Home Meds Active Scripts Anastrozole (Anastrozole) 1 Mg Tablet, 1 TAB PO DAILY for 90 Days, #90 TAB 1 Refill Prov:MICAELA BAHENA MDFRCP 07/15/20 Alendronate Sodium (Alendronate Sodium) 70 Mg Tablet, 1 TAB PO Q7D for 30 Days, #12 TAB 3 Refills in the morning, at least 30 minutes before the first food, beverage, or medication of the day Prov:CRUZ SAAVEDRA MD 01/09/20 Calcium Carbonate/Vitamin D3 (Calcium 600-Vit D3 400 Tablet) 1 Each Tablet, 1 TAB PO BID for 90 Days, #180 TAB 3 Refills Prov:CRUZ SAAVEDRA MD 11/05/19 Reported Medications Covid-19 Vacc, Mrna(exoro system)/Pf (exoro system Covid19 Vacc (Unapprov)) 30 Mcg/0.3 Ml Vial, 30 MCG IM, VIAL 07/07/20 Aspirin/Acetaminophen/Caffeine (Excedrin Migraine Caplet) 1 Each Tablet, 2 TAB- CAP PO DAILY PRN for HEADACHE for 5 Days, #10 TAB-CAP 07/07/20 Carboxymethylcellulose Sodium (Refresh Tears) 15 Ml Drops, 1 DROP OP QID for 30 Days, #15 ML 11/05/19 Albuterol Sulfate (Proair Hfa) 8.5 Gm Hfa.aer.ad, 2 PUFF INH PRN PRN for SOB/WHEEZING, INHALER 09/08/19 Cetirizine Hcl (Cetirizine HCl) 1 Mg/1 Ml Solution, 10 MG PO PRN, LAKESHA 09/08/19 Acetaminophen (Tylenol) 325 Mg Tablet, 650 MG PO PRN, TAB 09/08/19 Ergocalciferol (Vitamin D2) (Vitamin D2) 50,000 Units Cap, 1250 MCG PO QWEEK, CAP sunday09/08/19 Ramipril (Ramipril) 10 Mg Capsule, 10 MG PO QPM, CAP 09/08/19 Simvastatin (Simvastatin) 40 Mg Tablet, 40 MG PO QPM, TAB 09/08/19 Levothyroxine Sodium (LEVOTHYROXINE SODIUM) 75 Mcg Tablet, 75 MCG PO QPM, TAB 09/08/19 Review of Systems Review of Systems Constitutional: Denies: Fatigue, Weight Loss Eyes: Denies: Pain HEENT: Denies: Head Aches Pulmonary: Denies: Dyspnea Cardiovascular: Denies: Chest Pain, Edema Musculoskeletal: Denies: Neck pain, Arm pain Neurological: Denies: Weakness, Numbness Psych: Reports: Mood Normal Physical Examination Vital Signs Wt 178 lbs T 96.5 P 78 RR 18 BP 129/86 O2 95% Pain 0 Fatigue 1 General Exam: Alert, Cooperative, No Acute Distress Eye Exam: PERRLA EOMI ENT EXAM: Atraumatic Neck Exam: Supple Chest Exam: Clear to auscultation Heart Exam: Rate Normal Breast Exam: Negative: Symmetric Bilaterally (Left medial breast with post- surgical asymmetry. ), Lumps or Masses, Nipple Retraction, Nipple Discharge, Skin Changes Extremity Exam: Negative: Edema Skin Exam: Nl turgor and temperature Neuro Exam: Normal Gait, Normal Speech, Cranial Nerves 3-12 NL Psych Exam: Mental status NL Diagnostic and Laboratory Diagnostic Review Radiologic images, relevant labs and pathology reports were personally reviewed and discussed with Ms. Haque. Assessment and Plan Impression Assessment Ms. Haque is a 65 year old female with a history of screening detected left breast cancer pT1aN0(sn)M0 ER+ VT/HER2- Grade 3. She is s/p lumpectomy and SLNB followed by margin directed re-excision for DCIS on 10/17/19. She completed adjuvant RT to the left breast, 40 Gy in 15 fractions on 01/05/20. She continued on anastrazole. Lenore has no evidence of recurrence on exam today. We discussed that she would be eligible for mastopexy, if she is interested, I would refer her to Dr. Bowles for consultation. She is hesitant to undertake additional surgery now and would prefer to hold off. Given that she has close medical oncology and mammographic follow up I will see her again in 6 months time. Performance Status ECOG 0 Plan Follow up in 6 months Ms. Haque was encouraged to call with questions or concerns in the interim period. Billing Statement Total time of [21] minutes was spent preparing for the visit [1], obtaining HPI [4], examining the patient [3], reviewing diagnostic tests [2], discussing management options [5], coordinating care [1], and writing this note [21]. MARIA LUISA VANG MD Jan 05, 2021 13:12
== END ==
LOC: M ONCR 11:01
PROVIDERS: ATTEND General Practice
DX: C50.812 Malignant neoplasm of overlapping sites of left female breast (principal); Z92.3 Personal history of irradiation; Z88.0 Allergy status to penicillin; Z88.2 Allergy status to sulfonamides; Z79.899 Other long term (current) drug therapy

== ENCOUNTER → 2021-05-05 | Outpatient (CLI) | payer OTHER ==
[~2021-05-05] MED LIST changes: +FENO160T10 PO
== END ==
LOC: M RAD 10:10
PROVIDERS: ATTEND Internal Medicine Hematology & Oncology
DX: C50.812 Malignant neoplasm of overlapping sites of left female breast (principal); K80.20 Calculus of gallbladder without cholecystitis without obstruction; R91.8 Other nonspecific abnormal finding of lung field; Z90.710 Acquired absence of both cervix and uterus

== ENCOUNTER → 2021-06-10 | Outpatient (CLI) | payer OTHER | LOC: M LABSMTC 10:39 | PROVIDERS: ATTEND Anesthesiology | DX: Z01.812 Encounter for preprocedural laboratory examination (principal); Z20.822 Contact with and (suspected) exposure to COVID-19 ==

== ENCOUNTER 2021-06-14 08:53 | Day surgery (SDC) | payer OTHER ==
[~2021-06-14] VITALS: Ht 157.5 cm; Wt 77.7 kg
[~2021-06-14 08:53] MED LIST changes: +LIDOCAINE 1% MDV 20ML VIAL SQ PRN; +LR 1,000 ML IV ONE
[2021-06-14 09:57] LABS: CALCIUM LEVEL 9.5 MG/DL (8.8-10.2); CREATININE FOR GFR 1.01 MG/DL (0.55-1.30); GLOMERULAR FILTRATION RATE 58.2 (>45); POTASSIUM SERUM 4.1 MEQ/L (3.5-5.1)
[2021-06-14] MEDS ORDERED: LIDOCAINE 2% INJ 100 MG/5 ML SYRINGE As Ordered ONE (10:36)
[2021-06-14] MEDS ORDERED: ROCURONIUM BROMIDE 50 MG/5 ML VIAL As Ordered ONE (10:36)
[2021-06-14] MEDS ORDERED: fentaNYL 100 MCG/2 ML INJECTION As Ordered ONE ×3 (11:11→13:42)
[2021-06-14] MEDS ORDERED: MIDAZOLAM INJ 2MG/2ML VIAL (J2250 PER 1MG) As Ordered ONE (11:12)
[2021-06-14] MEDS ORDERED: BUPIVACAINE HCL 0.25% 30ML VIAL As Ordered ONE (11:13)
[2021-06-14] MEDS ORDERED: dexameTHASONE 4 MG/ML 1ML VIAL (J1100 PER 1MG) As Ordered ONE (11:47)
[2021-06-14] MEDS ORDERED: ACETAMINOPHEN 1000MG 100ML IV BTL (OFIRMEV) (J0131 PER 10MG) As Ordered ONE (12:04)
[2021-06-14] MEDS ORDERED: propofoL 200 MG/20 ML VIAL As Ordered ONE (12:06)
[2021-06-14] MEDS: fentaNYL 100 MCG/2 ML INJECTION IV PRN ×4 (13:40→13:59)
[2021-06-14] MEDS ORDERED: LR 1,000 ML IV SCH (13:50)
[2021-06-14] MEDS ORDERED: ONDANSETRON 4MG/2ML VIAL IV PRN (13:50)
[2021-06-14] MEDS: PERCOCET 5MG/325MG TAB PO PRN ×2 (13:56→14:52)
[2021-06-14 14:24] VITALS: BP 115/55
[2021-06-14] MEDS ORDERED: HYDR-3715 PO (14:27)
[2021-06-14] MEDS ORDERED: NORCO, ANEXSIA 5/325MG TABLET (HYDROcodone/ACETAMINOPHEN) PO PRN (14:30)
[2021-06-14] MEDS ORDERED: ACETAMINOPHEN TAB 650MG DOSE (2X325MG) PO PRN (14:30)
== END 2021-06-14 15:28 | disposition home or self-care (01) ==
LOC: M SDC 08:53
PROVIDERS: ATTEND Surgery
DX: K80.10 Calculus of gallbladder with chronic cholecystitis without obstruction (principal); E78.2 Mixed hyperlipidemia; E03.8 Other specified hypothyroidism; E55.9 Vitamin D deficiency, unspecified; C50.912 Malignant neoplasm of unspecified site of left female breast; J45.909 Unspecified asthma, uncomplicated; Z88.0 Allergy status to penicillin; Z88.2 Allergy status to sulfonamides; Z79.899 Other long term (current) drug therapy; Z79.811 Long term (current) use of aromatase inhibitors
CPT/HCPCS: 36415; 47562; 80048; 88304; 93005; J0131; J1100; J2250; J3010

== ENCOUNTER → 2021-07-06 | Outpatient (CLI) | payer OTHER ==
[~2021-07-06] MED LIST changes: +EXCETAB32 PO; -EXCETAB33 PO; +HYDR-3715 PO; -LIDOCAINE 1% MDV 20ML VIAL SQ PRN; -LR 1,000 ML IV ONE
== END ==
LOC: M ONCR 10:11
PROVIDERS: ATTEND General Practice
DX: C50.812 Malignant neoplasm of overlapping sites of left female breast (principal); D05.12 Intraductal carcinoma in situ of left breast; Z92.3 Personal history of irradiation; Z79.51 Long term (current) use of inhaled steroids; Z79.899 Other long term (current) drug therapy; Z79.82 Long term (current) use of aspirin; Z88.0 Allergy status to penicillin; Z88.2 Allergy status to sulfonamides

== ENCOUNTER → 2021-08-05 | Outpatient (CLI) | payer OTHER | LOC: M WHC 08:20 | PROVIDERS: ATTEND Internal Medicine Hematology & Oncology | DX: Z12.31 Encounter for screening mammogram for malignant neoplasm of breast (principal); Z92.3 Personal history of irradiation; Z85.3 Personal history of malignant neoplasm of breast; Z80.0 Family history of malignant neoplasm of digestive organs; Z80.3 Family history of malignant neoplasm of breast; Z80.41 Family history of malignant neoplasm of ovary ==

== ENCOUNTER → 2021-10-11 | Outpatient (CLI) | payer OTHER | LOC: M WHC 10:25 | PROVIDERS: ATTEND Registered Nurse | DX: R59.0 Localized enlarged lymph nodes (principal) ==

== ENCOUNTER → 2021-12-08 | Outpatient (CLI) | payer OTHER | LOC: M WHC 10:28 | PROVIDERS: ATTEND Internal Medicine Hematology & Oncology | DX: M85.851 Other specified disorders of bone density and structure, right thigh (principal); M85.852 Other specified disorders of bone density and structure, left thigh ==

== ENCOUNTER 2022-06-20 07:47 | Day surgery (SDC) | payer MEDICARE, OTHER ==
[~2022-06-20] VITALS: Ht 157.5 cm; Wt 78.5 kg
[~2022-06-20 07:47] MED LIST changes: +ALBU2.5V10 INH; +CYCLOPENTOLATE 1% OPHTH SOLN 2ML BTL OD SCH; +LIDOCAINE 1% SDV 5ML VIAL As Ordered ONE; +MULTCHW14 PO; +OFLOXACIN 0.3 % (OCUFLOX) OPTH SOL 5ML OD SCH; +PHENYLEPHRINE 2.5% OPHTH SOL 2ML OD SCH; +PROPARACAINE 0.5% OPHTH SOL 15ML OD ONE; +TOBRADEX OPHTH OINT 3.5 GM As Ordered ONE; +TROPICAMIDE 1% OPHTH SOLN 15ML OD SCH
[2022-06-20] MEDS ORDERED: BSS IRR 500ML/OMIDRIA 4ML IRR BAG (OR ONLY) As Ordered ONE (10:23)
[2022-06-20] MEDS ORDERED: fentaNYL 100 MCG/2 ML INJECTION As Ordered ONE (11:17)
[2022-06-20] MEDS ORDERED: MIDAZOLAM INJ 2MG/2ML VIAL As Ordered ONE (11:17)
[2022-06-20 11:53] VITALS: BP 133/78
== END 2022-06-20 11:48 | disposition home or self-care (01) ==
LOC: M SDC 07:47
PROVIDERS: ATTEND Ophthalmology
DX: H25.11 Age-related nuclear cataract, right eye (principal); I10 Essential (primary) hypertension; E78.5 Hyperlipidemia, unspecified; E03.9 Hypothyroidism, unspecified; G43.909 Migraine, unspecified, not intractable, without status migrainosus; J45.909 Unspecified asthma, uncomplicated; Z85.3 Personal history of malignant neoplasm of breast; Z79.810 Long term (current) use of selective estrogen receptor modulators (SERMs); Z79.52 Long term (current) use of systemic steroids; Z79.811 Long term (current) use of aromatase inhibitors; Z79.899 Other long term (current) drug therapy; Z88.0 Allergy status to penicillin; Z88.2 Allergy status to sulfonamides
CPT/HCPCS: 66984; J1097; J2250; J3010; V2632

== ENCOUNTER → 2022-07-07 | Outpatient (CLI) | payer OTHER, MEDICARE ==
[~2022-07-07] MED LIST changes: +CETI10CA13 PO; -CYCLOPENTOLATE 1% OPHTH SOLN 2ML BTL OD SCH; -LIDOCAINE 1% SDV 5ML VIAL As Ordered ONE; -OFLOXACIN 0.3 % (OCUFLOX) OPTH SOL 5ML OD SCH; -PHENYLEPHRINE 2.5% OPHTH SOL 2ML OD SCH; -PROPARACAINE 0.5% OPHTH SOL 15ML OD ONE; -TOBRADEX OPHTH OINT 3.5 GM As Ordered ONE; -TROPICAMIDE 1% OPHTH SOLN 15ML OD SCH; +VITA500045 PO
== END ==
LOC: M ONCR 10:51
PROVIDERS: ATTEND Specialist
DX: Z01.89 Encounter for other specified special examinations (principal)

== ENCOUNTER → 2022-08-07 | Outpatient (CLI) | payer OTHER, MEDICARE | LOC: M WHC 10:43 | PROVIDERS: ATTEND Specialist | DX: C50.919 Malignant neoplasm of unspecified site of unspecified female breast (principal) ==

== ENCOUNTER 2022-08-08 08:13 | Day surgery (SDC) | payer OTHER, MEDICARE ==
[~2022-08-08] VITALS: Ht 157.5 cm; Wt 77.6 kg
[~2022-08-08 08:13] MED LIST changes: +BSS IRR 500ML/OMIDRIA 4ML IRR BAG (OR ONLY) As Ordered ONE; +CYCLOPENTOLATE 1% OPHTH SOLN 2ML BTL OS SCH; +LIDOCAINE 1% SDV 5ML VIAL As Ordered ONE; +OFLOXACIN 0.3 % (OCUFLOX) OPTH SOL 5ML OS SCH; +PHENYLEPHRINE 2.5% OPHTH SOL 2ML OS SCH; +PROPARACAINE 0.5% OPHTH SOL 15ML OS ONE; +TOBRADEX OPHTH OINT 3.5 GM As Ordered ONE; +TROPICAMIDE 1% OPHTH SOLN 15ML OS SCH
[2022-08-08] MEDS ORDERED: fentaNYL 100 MCG/2 ML INJECTION As Ordered ONE (09:51)
[2022-08-08] MEDS ORDERED: MIDAZOLAM INJ 2MG/2ML VIAL As Ordered ONE (09:51)
[2022-08-08 10:13] VITALS: BP 128/74; TEMP 98.1; O2SAT 98
== END 2022-08-08 10:36 | disposition home or self-care (01) ==
LOC: M SDC 08:13
PROVIDERS: ATTEND Ophthalmology
DX: H25.12 Age-related nuclear cataract, left eye (principal); H21.81 Floppy iris syndrome; I10 Essential (primary) hypertension; E78.5 Hyperlipidemia, unspecified; E03.9 Hypothyroidism, unspecified; Z88.0 Allergy status to penicillin; Z88.2 Allergy status to sulfonamides; Z79.899 Other long term (current) drug therapy; Z79.890 Hormone replacement therapy
CPT/HCPCS: 66984; J1097; J2250; J3010; V2632

== ENCOUNTER → 2023-08-09 | Outpatient (CLI) | payer OTHER, MEDICARE ==
[~2023-08-09] MED LIST changes: -BSS IRR 500ML/OMIDRIA 4ML IRR BAG (OR ONLY) As Ordered ONE; +CAPS0.022 TOP; -CYCLOPENTOLATE 1% OPHTH SOLN 2ML BTL OS SCH; -LIDOCAINE 1% SDV 5ML VIAL As Ordered ONE; -OFLOXACIN 0.3 % (OCUFLOX) OPTH SOL 5ML OS SCH; -PHENYLEPHRINE 2.5% OPHTH SOL 2ML OS SCH; -PROPARACAINE 0.5% OPHTH SOL 15ML OS ONE; +RAMI10CA64 PO; -RAMI1CAP26 PO; -TOBRADEX OPHTH OINT 3.5 GM As Ordered ONE; -TROPICAMIDE 1% OPHTH SOLN 15ML OS SCH; +[UNRECOGNIZED DRUG - REMARK]
== END ==
LOC: M WHC 11:59
PROVIDERS: ATTEND Specialist
DX: Z12.31 Encounter for screening mammogram for malignant neoplasm of breast (principal)

== ENCOUNTER → 2023-12-25 | Outpatient (CLI) | payer OTHER, MEDICARE | LOC: M WHC 08:57 | PROVIDERS: ATTEND Specialist | DX: Z13.820 Encounter for screening for osteoporosis (principal); D05.10 Intraductal carcinoma in situ of unspecified breast; M85.852 Other specified disorders of bone density and structure, left thigh; M85.851 Other specified disorders of bone density and structure, right thigh ==

== ENCOUNTER → 2024-05-20 | Outpatient (CLI) | payer OTHER | LOC: M SOG 07:50 | PROVIDERS: ATTEND Physician Assistant | DX: M17.0 Bilateral primary osteoarthritis of knee (principal) ==

== ENCOUNTER → 2024-07-10 | Outpatient (CLI) | payer OTHER, MEDICARE | LOC: M ONCR 09:43 | PROVIDERS: ATTEND General Practice | DX: Z08 Encounter for follow-up examination after completed treatment for malignant neoplasm (principal); Z85.3 Personal history of malignant neoplasm of breast; J30.2 Other seasonal allergic rhinitis; Z79.899 Other long term (current) drug therapy; Z88.0 Allergy status to penicillin; Z88.1 Allergy status to other antibiotic agents; Z88.2 Allergy status to sulfonamides; Z92.29 Personal history of other drug therapy; Z92.3 Personal history of irradiation ==